=== PATIENT | female | born 1945 | race Caucasian/White ===

== ENCOUNTER 2022-04-27 21:39 | Emergency (ER) | payer OTHER, MEDICARE ==
[2022-04-27] MEDS ORDERED: Boostrix 0.5 ML (Tdap) VIAL ONE (22:11)
[2022-04-27] MEDS ORDERED: traMADol HCl 50 MG TAB ONE (22:11)
[2022-04-27] MEDS ORDERED: Ondansetron PF 4 MG/2 ML Vial ONE (22:11)
[2022-04-27] MEDS ORDERED: Ondansetron ODT 4 MG TAB ONE (22:20)
== END 2022-04-27 23:10 | disposition home or self-care (01) ==
LOC: BURERS 21:39
DX: S01.01XA Laceration without foreign body of scalp, initial encounter (principal); S70.10XA Contusion of unspecified thigh, initial encounter; S50.312A Abrasion of left elbow, initial encounter; I25.10 Atherosclerotic heart disease of native coronary artery without angina pectoris; E03.9 Hypothyroidism, unspecified; E78.5 Hyperlipidemia, unspecified; E78.00 Pure hypercholesterolemia, unspecified; I10 Essential (primary) hypertension; Z23 Encounter for immunization; W18.30XA Fall on same level, unspecified, initial encounter
CPT/HCPCS: 12002; 70450; 90471; 90715; J2405; Q0162

== ENCOUNTER 2022-06-08 19:29 | Emergency (ER) | payer OTHER, MEDICARE ==
[2022-06-08] MEDS ORDERED: Lidocaine 1% w/Epinephrine 1:100K 20 ML VIAL ONE (19:39)
[2022-06-08] MEDS ORDERED: Bacitracin 1 PK ONE ×2 (19:39→20:16)
[2022-06-08] MEDS ORDERED: Acetaminophen 500 MG TAB ONE (20:53)
== END 2022-06-08 20:57 | disposition home or self-care (01) ==
LOC: BURERS 19:29
DX: S01.01XA Laceration without foreign body of scalp, initial encounter (principal); S50.02XA Contusion of left elbow, initial encounter; E03.9 Hypothyroidism, unspecified; E78.00 Pure hypercholesterolemia, unspecified; I10 Essential (primary) hypertension; I25.10 Atherosclerotic heart disease of native coronary artery without angina pectoris; W01.198A Fall on same level from slipping, tripping and stumbling with subsequent striking against other object, initial encounter
CPT/HCPCS: 12002; 70450

== ENCOUNTER 2022-08-28 14:13 | Outpatient (CLI) | payer MEDICARE | END 2022-08-28 14:14 | disposition home or self-care (01) | LOC: BUREKG 14:13 | PROVIDERS: ATTEND Family Medicine | DX: Z01.818 Encounter for other preprocedural examination (principal) | CPT/HCPCS: 71046; 93005; 93010 ==

== ENCOUNTER 2022-12-18 14:42 | Outpatient (CLI) | payer MEDICARE ==
[2022-12-18 15:12] LABS: #Basophils 0.2 thou/uL (0.0-0.2); #Eosinphils 0.6 thou/uL (0.0-0.7); #Lymphocytes 2.9 thou/uL (1.20-3.40); #Monocytes 0.7 thou/uL (0.11-0.59); #Neutrophils 7.8 thou/uL (1.40-6.50); %Basophils 1.4 % (0.0-1.0); %Eosinophils 5.3 % (0.0-10.0); %Lymphocytes 23.6 % (21.0-51.0); %Monocytes 5.5 % (0.0-10.0); %Neutrophils 64.3 % (42.0-75.0); Hemoglobin 13.1 g/dL (12.0-16.0); Mean Corpuscular HGB CONC 33.4 g/dL (32.0-36.0); Mean Corpuscular Hemoglobin 31.7 pg (27.0-31.0); Mean Platelet Volume 6.4 fL (7.4-10.4); Platelet Count 317 10x3/uL (130-400); RBC Distribution Width 13.2 % (11.5-14.5); Red Blood Cell (RBC) Count 4.14 mill/uL (4.20-5.40); White Blood Cell (WBC) Count 12.1 10x3/uL (4.8-10.8)
[2022-12-18 15:20] LABS: INR-International Normal Ratio 0.9; Prothrombin Time 12.9 sec (12.0-14.7)
[2022-12-18 15:21] LABS: PTT 29.2 sec (22.9-36.1)
[2022-12-18 15:25] LABS: ALT (SGPT) 19 U/L (8-55); AST (SGOT) 17 U/L (5-34); Albumin 3.8 g/dL (3.4-4.8); Alkaline Phosphatase 101 U/L (40-110); Anion Gap 13 mmol/L (10-20); BUN (Urea Nitrogen) 27 mg/dL (9.8-20.1); Bilirubin, Total 0.3 mg/dL (0.2-1.2); Calc. Creatinine Clearance 0 mL/min (70-130); Calcium 9.6 mg/dL (7.8-10.44); Carbon Dioxide 26 mmol/L (23-31); Chloride 105 mmol/L (98-107); Estimated GFR 67; Globulin 3.1 g/dL (2.4-3.5); Glucose 105 mg/dL (83-110); Potassium 3.9 mmol/L (3.5-5.1); Protein, Total 6.9 g/dL (5.8-8.1); Sodium 140 mmol/L (136-145)
== END 2022-12-18 14:43 | disposition home or self-care (01) ==
LOC: BUREKG 14:42
PROVIDERS: ATTEND Family Medicine
DX: Z01.818 Encounter for other preprocedural examination (principal); J98.4 Other disorders of lung
CPT/HCPCS: 36415; 71046; 80053; 85025; 85610; 85730; 93005; 93010

== ENCOUNTER 2022-12-19 16:16 | Outpatient (CLI) | payer MEDICARE ==
[~2022-12-19 16:16] MED LIST: Iopamidol 370 76% 100 ML VIAL ONE
== END 2022-12-19 16:17 | disposition home or self-care (01) ==
LOC: BURCT 16:16
PROVIDERS: ATTEND Family Medicine
DX: R91.8 Other nonspecific abnormal finding of lung field (principal); K46.9 Unspecified abdominal hernia without obstruction or gangrene; K22.89 Other specified disease of esophagus; B43.2 Subcutaneous pheomycotic abscess and cyst; Z91.89 Other specified personal risk factors, not elsewhere classified
CPT/HCPCS: 71260; Q9967

== ENCOUNTER 2023-02-07 11:46 | Inpatient (IN) | payer MEDICARE ==
[2023-02-07] MEDS ORDERED: GUAIFENESIN SF SOLN 200 MG/10 ML UDCUP PO PRN (16:16)
[2023-02-07] MEDS: traZODone HCl 50 MG TAB PO SCH (20:12)
[2023-02-07] MEDS: Apixaban 5 MG TAB PO SCH (20:12)
[2023-02-07] MEDS: Famotidine 20 MG TAB PO SCH (20:12)
[2023-02-07] MEDS: Latanoprost 0.005% Ophth Soln 2.5 ml Bottle EA EYE SCH (20:13)
[2023-02-07] MEDS: Acetaminophen 325 MG TAB PO PRN (22:54)
[2023-02-08] MEDS: Levothyroxine Sodium 50 MCG TAB PO SCH (05:18)
[2023-02-08 05:52] LABS: #Basophils 0.1 thou/uL (0.0-0.2); #Eosinphils 0.4 thou/uL (0.0-0.7); #Lymphocytes 1.8 thou/uL (1.20-3.40); #Monocytes 0.6 thou/uL (0.11-0.59); #Neutrophils 5.8 thou/uL (1.40-6.50); %Basophils 1.3 % (0.0-1.0); %Eosinophils 4.3 % (0.0-10.0); %Lymphocytes 20.7 % (21.0-51.0); %Monocytes 6.5 % (0.0-10.0); %Neutrophils 67.3 % (42.0-75.0); Hemoglobin 11.3 g/dL (12.0-16.0); Mean Corpuscular HGB CONC 32.4 g/dL (32.0-36.0); Mean Corpuscular Hemoglobin 30.3 pg (27.0-31.0); Mean Corpuscular Volume 93.7 fl (78.0-98.0); Mean Platelet Volume 5.8 fL (7.4-10.4); Platelet Count 307 10x3/uL (130-400); RBC Distribution Width 12.3 % (11.5-14.5); Red Blood Cell (RBC) Count 3.74 mill/uL (4.20-5.40); White Blood Cell (WBC) Count 8.6 10x3/uL (4.8-10.8)
[2023-02-08 06:02] LABS: ALT (SGPT) 33 U/L (8-55); AST (SGOT) 36 U/L (5-34); Albumin 3.2 g/dL (3.4-4.8); Alkaline Phosphatase 81 U/L (40-110); Anion Gap 11 mmol/L (10-20); BUN (Urea Nitrogen) 14 mg/dL (9.8-20.1); Bilirubin, Total 0.2 mg/dL (0.2-1.2); Calc. Creatinine Clearance 74 mL/min (70-130); Calcium 9.6 mg/dL (7.8-10.44); Carbon Dioxide 26 mmol/L (23-31); Chloride 109 mmol/L (98-107); Estimated GFR 77; Globulin 3.5 g/dL (2.4-3.5); Glucose 97 mg/dL (83-110); Protein, Total 6.7 g/dL (5.8-8.1); Sodium 142 mmol/L (136-145)
[2023-02-08] MEDS ORDERED: Calcium Carbonate 600 MG + Vit D TAB ONE (08:03)
[2023-02-08] MEDS: Fluticasone Propionate Nasal Spray 16 gm Bottle NASAL SCH (08:57)
[2023-02-08] MEDS: DULoxetine 30 MG CAP PO SCH (08:59)
[2023-02-08] MEDS: Multivit, Therapeutic 1 TAB PO SCH (08:59)
[2023-02-08] MEDS: Fish Oil 1,000 MG CAP PO SCH (09:00)
[2023-02-08] MEDS: Apixaban 5 MG TAB PO SCH ×2 (09:01→20:40)
[2023-02-08] MEDS: Folic Acid 1 MG TAB PO SCH (09:01)
[2023-02-08] MEDS: Lisinopril 5 MG TAB PO SCH (09:02)
[2023-02-08] MEDS: Famotidine 20 MG TAB PO SCH ×2 (09:02→20:40)
[2023-02-08] MEDS: Ascorbic Acid 500 mg Chewable Tablet PO SCH (09:03)
[2023-02-08] MEDS: Artificial Tear Sol 15 ML BOT EA EYE PRN (09:14)
[2023-02-08] MEDS: CALCIUM CARB PO SCH (09:15)
[2023-02-08] MEDS: ZINC SULF PO SCH (09:15)
[2023-02-08] MEDS: CRANBERRY FRUIT EXTRACT 500 MG PO SCH (09:15)
[2023-02-08] MEDS: MAG OX PO SCH (09:15)
[2023-02-08] MEDS: Acetaminophen 325 MG TAB PO PRN ×2 (16:52→21:08)
[2023-02-08] MEDS: Latanoprost 0.005% Ophth Soln 2.5 ml Bottle EA EYE SCH (20:40)
[2023-02-08] MEDS: traZODone HCl 50 MG TAB PO SCH (20:40)
[2023-02-08] MEDS: ALPRAZolam 0.5 MG TAB PO PRN (20:50)
[2023-02-09] MEDS: Levothyroxine Sodium 50 MCG TAB PO SCH (05:32)
[2023-02-09] MEDS ORDERED: Calcium Carbonate 600 MG + Vit D TAB ONE (08:10)
[2023-02-09] MEDS: Fluticasone Propionate Nasal Spray 16 gm Bottle NASAL SCH (08:41)
[2023-02-09] MEDS: Multivit, Therapeutic 1 TAB PO SCH (08:41)
[2023-02-09] MEDS: Famotidine 20 MG TAB PO SCH ×2 (08:42→20:16)
[2023-02-09] MEDS: Apixaban 5 MG TAB PO SCH ×2 (08:42→20:16)
[2023-02-09] MEDS: Fish Oil 1,000 MG CAP PO SCH (08:43)
[2023-02-09] MEDS: Ascorbic Acid 500 mg Chewable Tablet PO SCH (08:43)
[2023-02-09] MEDS: DULoxetine 30 MG CAP PO SCH (08:44)
[2023-02-09] MEDS: Folic Acid 1 MG TAB PO SCH (08:44)
[2023-02-09] MEDS: CRANBERRY FRUIT EXTRACT 500 MG PO SCH (08:46)
[2023-02-09] MEDS: MAG OX PO SCH (08:46)
[2023-02-09] MEDS: ZINC SULF PO SCH (08:46)
[2023-02-09] MEDS: CALCIUM CARB PO SCH (08:46)
[2023-02-09] MEDS: Artificial Tear Sol 15 ML BOT EA EYE PRN ×2 (08:47→20:21)
[2023-02-09] MEDS: Lisinopril 5 MG TAB PO SCH (08:53)
[2023-02-09] MEDS ORDERED: Nystatin Powder 15 GM BOT TOP PRN (13:56)
[2023-02-09] MEDS: Acetaminophen 325 MG TAB PO PRN (15:13)
[2023-02-09] MEDS: traZODone HCl 50 MG TAB PO SCH (20:16)
[2023-02-09] MEDS: rOPINIRole HCl 0.25 MG TAB PO SCH (20:17)
[2023-02-09] MEDS: Latanoprost 0.005% Ophth Soln 2.5 ml Bottle EA EYE SCH (20:18)
[2023-02-10] MEDS: Levothyroxine Sodium 50 MCG TAB PO SCH (05:33)
[2023-02-10] MEDS ORDERED: Calcium Carbonate 600 MG + Vit D TAB ONE (09:13)
[2023-02-10] MEDS: DULoxetine 30 MG CAP PO SCH (09:19)
[2023-02-10] MEDS: Apixaban 5 MG TAB PO SCH ×2 (09:19→21:01)
[2023-02-10] MEDS: Fish Oil 1,000 MG CAP PO SCH (09:19)
[2023-02-10] MEDS: Multivit, Therapeutic 1 TAB PO SCH (09:20)
[2023-02-10] MEDS: Ascorbic Acid 500 mg Chewable Tablet PO SCH (09:20)
[2023-02-10] MEDS: Folic Acid 1 MG TAB PO SCH (09:20)
[2023-02-10] MEDS: Lisinopril 5 MG TAB PO SCH (09:20)
[2023-02-10] MEDS: Famotidine 20 MG TAB PO SCH ×2 (09:20→21:01)
[2023-02-10] MEDS: Fluticasone Propionate Nasal Spray 16 gm Bottle NASAL SCH (09:21)
[2023-02-10] MEDS: CALCIUM CARB PO SCH (09:22)
[2023-02-10] MEDS: MAG OX PO SCH (09:22)
[2023-02-10] MEDS: ZINC SULF PO SCH (09:22)
[2023-02-10] MEDS: CRANBERRY FRUIT EXTRACT 500 MG PO SCH (09:22)
[2023-02-10] MEDS: Artificial Tear Sol 15 ML BOT EA EYE PRN ×2 (09:25→21:02)
[2023-02-10] MEDS: traZODone HCl 50 MG TAB PO SCH (21:00)
[2023-02-10] MEDS: Acetaminophen 325 MG TAB PO PRN (21:00)
[2023-02-10] MEDS: Latanoprost 0.005% Ophth Soln 2.5 ml Bottle EA EYE SCH (21:01)
[2023-02-10] MEDS: rOPINIRole HCl 0.25 MG TAB PO SCH (21:01)
[2023-02-11] MEDS: Levothyroxine Sodium 50 MCG TAB PO SCH (05:40)
[2023-02-11] MEDS ORDERED: Calcium Carbonate 600 MG + Vit D TAB ONE (09:00)
[2023-02-11] MEDS: Fluticasone Propionate Nasal Spray 16 gm Bottle NASAL SCH (09:04)
[2023-02-11] MEDS: Artificial Tear Sol 15 ML BOT EA EYE PRN ×2 (09:05→20:24)
[2023-02-11] MEDS: DULoxetine 30 MG CAP PO SCH (09:06)
[2023-02-11] MEDS: Famotidine 20 MG TAB PO SCH ×2 (09:06→20:18)
[2023-02-11] MEDS: Fish Oil 1,000 MG CAP PO SCH (09:06)
[2023-02-11] MEDS: Apixaban 5 MG TAB PO SCH ×2 (09:07→20:19)
[2023-02-11] MEDS: Ascorbic Acid 500 mg Chewable Tablet PO SCH (09:07)
[2023-02-11] MEDS: Folic Acid 1 MG TAB PO SCH (09:07)
[2023-02-11] MEDS: Lisinopril 5 MG TAB PO SCH (09:08)
[2023-02-11] MEDS: Multivit, Therapeutic 1 TAB PO SCH (09:08)
[2023-02-11] MEDS: ZINC SULF PO SCH (09:43)
[2023-02-11] MEDS: CALCIUM CARB PO SCH (09:43)
[2023-02-11] MEDS: MAG OX PO SCH (09:43)
[2023-02-11] MEDS: CRANBERRY FRUIT EXTRACT 500 MG PO SCH (09:44)
[2023-02-11] MEDS: Acetaminophen 325 MG TAB PO PRN ×2 (11:37→20:19)
[2023-02-11] MEDS: traZODone HCl 50 MG TAB PO SCH (20:18)
[2023-02-11] MEDS: rOPINIRole HCl 0.25 MG TAB PO SCH (20:19)
[2023-02-11] MEDS: Senokot S 8.6-50 MG TAB PO SCH (20:19)
[2023-02-11] MEDS: Latanoprost 0.005% Ophth Soln 2.5 ml Bottle EA EYE SCH (20:23)
[2023-02-12] MEDS: Levothyroxine Sodium 50 MCG TAB PO SCH (04:28)
[2023-02-12] MEDS ORDERED: Calcium Carbonate 600 MG + Vit D TAB ONE (08:19)
[2023-02-12] MEDS: Senokot S 8.6-50 MG TAB PO SCH ×2 (09:14→20:28)
[2023-02-12] MEDS: Acetaminophen 325 MG TAB PO PRN ×2 (09:14→20:27)
[2023-02-12] MEDS: Folic Acid 1 MG TAB PO SCH (09:15)
[2023-02-12] MEDS: Cyanocobalamin (Vitamin B-12) 1,000 MCG TAB PO SCH (09:16)
[2023-02-12] MEDS: Ascorbic Acid 500 mg Chewable Tablet PO SCH (09:16)
[2023-02-12] MEDS: Famotidine 20 MG TAB PO SCH ×2 (09:16→20:28)
[2023-02-12] MEDS: DULoxetine 30 MG CAP PO SCH (09:16)
[2023-02-12] MEDS: Lisinopril 5 MG TAB PO SCH (09:17)
[2023-02-12] MEDS: Apixaban 5 MG TAB PO SCH ×2 (09:17→20:28)
[2023-02-12] MEDS: Fish Oil 1,000 MG CAP PO SCH (09:18)
[2023-02-12] MEDS: Multivit, Therapeutic 1 TAB PO SCH (09:18)
[2023-02-12] MEDS: Fluticasone Propionate Nasal Spray 16 gm Bottle NASAL SCH (09:19)
[2023-02-12] MEDS: CALCIUM CARB PO SCH (09:21)
[2023-02-12] MEDS: MAG OX PO SCH (09:21)
[2023-02-12] MEDS: CRANBERRY FRUIT EXTRACT 500 MG PO SCH (09:21)
[2023-02-12] MEDS: ZINC SULF PO SCH (09:21)
[2023-02-12] MEDS: ALPRAZolam 0.5 MG TAB PO PRN (20:28)
[2023-02-12] MEDS: Latanoprost 0.005% Ophth Soln 2.5 ml Bottle EA EYE SCH (20:28)
[2023-02-12] MEDS: rOPINIRole HCl 0.25 MG TAB PO SCH (20:28)
[2023-02-12] MEDS: traZODone HCl 50 MG TAB PO SCH (20:28)
[2023-02-13] MEDS: Levothyroxine Sodium 50 MCG TAB PO SCH (05:13)
[2023-02-13] MEDS ORDERED: Calcium Carbonate 600 MG + Vit D TAB ONE (09:29)
[2023-02-13] MEDS: Fish Oil 1,000 MG CAP PO SCH (09:36)
[2023-02-13] MEDS: Famotidine 20 MG TAB PO SCH ×2 (09:36→21:29)
[2023-02-13] MEDS: DULoxetine 30 MG CAP PO SCH (09:36)
[2023-02-13] MEDS: Senokot S 8.6-50 MG TAB PO SCH ×2 (09:36→21:29)
[2023-02-13] MEDS: Multivit, Therapeutic 1 TAB PO SCH (09:39)
[2023-02-13] MEDS: Lisinopril 5 MG TAB PO SCH (09:40)
[2023-02-13] MEDS: Cyanocobalamin (Vitamin B-12) 1,000 MCG TAB PO SCH (09:41)
[2023-02-13] MEDS: Folic Acid 1 MG TAB PO SCH (09:41)
[2023-02-13] MEDS: Ascorbic Acid 500 mg Chewable Tablet PO SCH (09:41)
[2023-02-13] MEDS: CALCIUM CARB PO SCH (09:42)
[2023-02-13] MEDS: ZINC SULF PO SCH (09:42)
[2023-02-13] MEDS: MAG OX PO SCH (09:42)
[2023-02-13] MEDS: Apixaban 5 MG TAB PO SCH ×2 (09:42→21:30)
[2023-02-13] MEDS: CRANBERRY FRUIT EXTRACT 500 MG PO SCH (09:42)
[2023-02-13] MEDS: Fluticasone Propionate Nasal Spray 16 gm Bottle NASAL SCH (12:50)
[2023-02-13] MEDS: rOPINIRole HCl 0.25 MG TAB PO SCH (21:30)
[2023-02-13] MEDS: traZODone HCl 50 MG TAB PO SCH (21:30)
[2023-02-13] MEDS: Latanoprost 0.005% Ophth Soln 2.5 ml Bottle EA EYE SCH (21:30)
[2023-02-13] MEDS: Acetaminophen 325 MG TAB PO PRN (21:51)
[2023-02-14] MEDS: Levothyroxine Sodium 50 MCG TAB PO SCH (05:08)
[2023-02-14] MEDS ORDERED: Calcium Carbonate 600 MG + Vit D TAB ONE (08:13)
[2023-02-14] MEDS: Fish Oil 1,000 MG CAP PO SCH (08:27)
[2023-02-14] MEDS: DULoxetine 30 MG CAP PO SCH (08:27)
[2023-02-14] MEDS: Ascorbic Acid 500 mg Chewable Tablet PO SCH (08:28)
[2023-02-14] MEDS: Cyanocobalamin (Vitamin B-12) 1,000 MCG TAB PO SCH (08:29)
[2023-02-14] MEDS: Apixaban 5 MG TAB PO SCH ×2 (08:29→21:03)
[2023-02-14] MEDS: Multivit, Therapeutic 1 TAB PO SCH (08:29)
[2023-02-14] MEDS: Folic Acid 1 MG TAB PO SCH (08:30)
[2023-02-14] MEDS: Lisinopril 5 MG TAB PO SCH (08:30)
[2023-02-14] MEDS: Famotidine 20 MG TAB PO SCH ×2 (08:30→21:03)
[2023-02-14] MEDS: Senokot S 8.6-50 MG TAB PO SCH ×2 (08:31→21:04)
[2023-02-14] MEDS: CALCIUM CARB PO SCH (08:32)
[2023-02-14] MEDS: CRANBERRY FRUIT EXTRACT 500 MG PO SCH (08:32)
[2023-02-14] MEDS: MAG OX PO SCH (08:32)
[2023-02-14] MEDS: ZINC SULF PO SCH (08:32)
[2023-02-14] MEDS: Fluticasone Propionate Nasal Spray 16 gm Bottle NASAL SCH (08:37)
[2023-02-14 10:57] VITALS: BMI 29.7
[2023-02-14] MEDS: Acetaminophen 325 MG TAB PO PRN ×3 (11:15→21:11)
[2023-02-14] MEDS: ALPRAZolam 0.5 MG TAB PO PRN (15:26)
[2023-02-14] MEDS: Latanoprost 0.005% Ophth Soln 2.5 ml Bottle EA EYE SCH (21:02)
[2023-02-14] MEDS: rOPINIRole HCl 0.25 MG TAB PO SCH (21:03)
[2023-02-14] MEDS: traZODone HCl 50 MG TAB PO SCH (21:03)
[2023-02-15] MEDS: Acetaminophen 325 MG TAB PO PRN ×3 (04:49→20:11)
[2023-02-15] MEDS: Levothyroxine Sodium 50 MCG TAB PO SCH (05:34)
[2023-02-15] MEDS ORDERED: Calcium Carbonate 600 MG + Vit D TAB ONE (09:14)
[2023-02-15] MEDS: Cyanocobalamin (Vitamin B-12) 1,000 MCG TAB PO SCH (09:33)
[2023-02-15] MEDS: Folic Acid 1 MG TAB PO SCH (09:33)
[2023-02-15] MEDS: Fish Oil 1,000 MG CAP PO SCH (09:33)
[2023-02-15] MEDS: Apixaban 5 MG TAB PO SCH ×2 (09:33→20:10)
[2023-02-15] MEDS: Ascorbic Acid 500 mg Chewable Tablet PO SCH (09:33)
[2023-02-15] MEDS: Multivit, Therapeutic 1 TAB PO SCH (09:34)
[2023-02-15] MEDS: Senokot S 8.6-50 MG TAB PO SCH ×2 (09:35→20:15)
[2023-02-15] MEDS: Famotidine 20 MG TAB PO SCH ×2 (09:35→20:10)
[2023-02-15] MEDS: Lisinopril 5 MG TAB PO SCH (09:35)
[2023-02-15] MEDS: DULoxetine 30 MG CAP PO SCH (09:38)
[2023-02-15] MEDS: Fluticasone Propionate Nasal Spray 16 gm Bottle NASAL SCH (09:41)
[2023-02-15] MEDS: Artificial Tear Sol 15 ML BOT EA EYE PRN ×2 (09:42→20:18)
[2023-02-15] MEDS: CRANBERRY FRUIT EXTRACT 500 MG PO SCH (09:43)
[2023-02-15] MEDS: ZINC SULF PO SCH (09:43)
[2023-02-15] MEDS: MAG OX PO SCH (09:43)
[2023-02-15] MEDS: CALCIUM CARB PO SCH (09:43)
[2023-02-15] MEDS: rOPINIRole HCl 0.25 MG TAB PO SCH (20:10)
[2023-02-15] MEDS: traZODone HCl 50 MG TAB PO SCH (20:10)
[2023-02-15] MEDS: Latanoprost 0.005% Ophth Soln 2.5 ml Bottle EA EYE SCH (20:15)
[2023-02-16] MEDS: Levothyroxine Sodium 50 MCG TAB PO SCH (05:28)
[2023-02-16] MEDS ORDERED: Calcium Carbonate 600 MG + Vit D TAB ONE (08:54)
[2023-02-16] MEDS: Artificial Tear Sol 15 ML BOT EA EYE PRN (08:59)
[2023-02-16] MEDS: Fluticasone Propionate Nasal Spray 16 gm Bottle NASAL SCH (09:02)
[2023-02-16] MEDS: Apixaban 5 MG TAB PO SCH ×2 (09:03→20:57)
[2023-02-16] MEDS: Fish Oil 1,000 MG CAP PO SCH (09:03)
[2023-02-16] MEDS: DULoxetine 30 MG CAP PO SCH (09:03)
[2023-02-16] MEDS: Folic Acid 1 MG TAB PO SCH (09:03)
[2023-02-16] MEDS: Cyanocobalamin (Vitamin B-12) 1,000 MCG TAB PO SCH (09:04)
[2023-02-16] MEDS: Lisinopril 5 MG TAB PO SCH (09:04)
[2023-02-16] MEDS: Famotidine 20 MG TAB PO SCH ×2 (09:05→20:57)
[2023-02-16] MEDS: Ascorbic Acid 500 mg Chewable Tablet PO SCH (09:05)
[2023-02-16] MEDS: Multivit, Therapeutic 1 TAB PO SCH (09:06)
[2023-02-16] MEDS: MAG OX PO SCH (09:07)
[2023-02-16] MEDS: CALCIUM CARB PO SCH (09:07)
[2023-02-16] MEDS: CRANBERRY FRUIT EXTRACT 500 MG PO SCH (09:07)
[2023-02-16] MEDS: ZINC SULF PO SCH (09:07)
[2023-02-16] MEDS: Senokot S 8.6-50 MG TAB PO SCH ×2 (09:09→20:59)
[2023-02-16] MEDS: ALPRAZolam 0.5 MG TAB PO PRN (15:50)
[2023-02-16] MEDS: Acetaminophen 325 MG TAB PO PRN (20:57)
[2023-02-16] MEDS: traZODone HCl 50 MG TAB PO SCH (20:59)
[2023-02-16] MEDS: rOPINIRole HCl 0.25 MG TAB PO SCH (20:59)
[2023-02-16] MEDS: Latanoprost 0.005% Ophth Soln 2.5 ml Bottle EA EYE SCH (21:00)
[2023-02-17] MEDS: Levothyroxine Sodium 50 MCG TAB PO SCH (05:37)
[2023-02-17] MEDS: Acetaminophen 325 MG TAB PO PRN ×2 (06:13→12:34)
[2023-02-17] MEDS ORDERED: Calcium Carbonate 600 MG + Vit D TAB ONE (09:09)
[2023-02-17] MEDS: Artificial Tear Sol 15 ML BOT EA EYE PRN (09:23)
[2023-02-17] MEDS: Fluticasone Propionate Nasal Spray 16 gm Bottle NASAL SCH (09:24)
[2023-02-17] MEDS: Multivit, Therapeutic 1 TAB PO SCH (09:24)
[2023-02-17] MEDS: Fish Oil 1,000 MG CAP PO SCH (09:24)
[2023-02-17] MEDS: Famotidine 20 MG TAB PO SCH ×2 (09:25→20:38)
[2023-02-17] MEDS: Apixaban 5 MG TAB PO SCH ×2 (09:25→20:38)
[2023-02-17] MEDS: Cyanocobalamin (Vitamin B-12) 1,000 MCG TAB PO SCH (09:25)
[2023-02-17] MEDS: Lisinopril 5 MG TAB PO SCH (09:25)
[2023-02-17] MEDS: Ascorbic Acid 500 mg Chewable Tablet PO SCH (09:25)
[2023-02-17] MEDS: DULoxetine 30 MG CAP PO SCH (09:25)
[2023-02-17] MEDS: Senokot S 8.6-50 MG TAB PO SCH ×2 (09:25→20:38)
[2023-02-17] MEDS: Folic Acid 1 MG TAB PO SCH (09:25)
[2023-02-17] MEDS: CALCIUM CARB PO SCH (09:26)
[2023-02-17] MEDS: MAG OX PO SCH (09:26)
[2023-02-17] MEDS: ZINC SULF PO SCH (09:26)
[2023-02-17] MEDS: CRANBERRY FRUIT EXTRACT 500 MG PO SCH (09:26)
[2023-02-17] MEDS: hydrOXYzine 25 MG TAB PO SCH (20:38)
[2023-02-17] MEDS: traZODone HCl 50 MG TAB PO SCH (20:38)
[2023-02-17] MEDS: rOPINIRole HCl 0.25 MG TAB PO SCH (20:38)
[2023-02-17] MEDS: Latanoprost 0.005% Ophth Soln 2.5 ml Bottle EA EYE SCH (20:41)
[2023-02-18] MEDS: Levothyroxine Sodium 50 MCG TAB PO SCH (05:18)
[2023-02-18 05:34] LABS: Hemoglobin 11.6 g/dL (12.0-16.0); Platelet Count 268 10x3/uL (130-400)
[2023-02-18] MEDS ORDERED: Calcium Carbonate 600 MG + Vit D TAB ONE (09:27)
[2023-02-18] MEDS: Fluticasone Propionate Nasal Spray 16 gm Bottle NASAL SCH (09:36)
[2023-02-18] MEDS: Famotidine 20 MG TAB PO SCH ×2 (09:37→20:47)
[2023-02-18] MEDS: Senokot S 8.6-50 MG TAB PO SCH ×2 (09:37→20:47)
[2023-02-18] MEDS: Fish Oil 1,000 MG CAP PO SCH (09:37)
[2023-02-18] MEDS: Apixaban 5 MG TAB PO SCH ×2 (09:37→20:47)
[2023-02-18] MEDS: DULoxetine 30 MG CAP PO SCH (09:38)
[2023-02-18] MEDS: Folic Acid 1 MG TAB PO SCH (09:38)
[2023-02-18] MEDS: Multivit, Therapeutic 1 TAB PO SCH (09:40)
[2023-02-18] MEDS: Cyanocobalamin (Vitamin B-12) 1,000 MCG TAB PO SCH (09:40)
[2023-02-18] MEDS: Ascorbic Acid 500 mg Chewable Tablet PO SCH (09:40)
[2023-02-18] MEDS: Artificial Tear Sol 15 ML BOT EA EYE PRN (09:40)
[2023-02-18] MEDS: Lisinopril 5 MG TAB PO SCH (09:44)
[2023-02-18] MEDS: CALCIUM CARB PO SCH (09:50)
[2023-02-18] MEDS: ZINC SULF PO SCH (09:50)
[2023-02-18] MEDS: MAG OX PO SCH (09:50)
[2023-02-18] MEDS: CRANBERRY FRUIT EXTRACT 500 MG PO SCH (09:50)
[2023-02-18] MEDS ORDERED: ALPRAZolam 0.5 MG TAB PO PRN (10:05)
[2023-02-18] MEDS: traZODone HCl 50 MG TAB PO SCH (20:47)
[2023-02-18] MEDS: hydrOXYzine 25 MG TAB PO SCH (20:47)
[2023-02-18] MEDS: Acetaminophen 325 MG TAB PO PRN (20:47)
[2023-02-18] MEDS: rOPINIRole HCl 0.25 MG TAB PO SCH (20:48)
[2023-02-18] MEDS: Latanoprost 0.005% Ophth Soln 2.5 ml Bottle EA EYE SCH (20:50)
[2023-02-19] MEDS: Levothyroxine Sodium 50 MCG TAB PO SCH (05:16)
[2023-02-19] MEDS ORDERED: Calcium Carbonate 600 MG + Vit D TAB ONE (08:04)
[2023-02-19] MEDS: DULoxetine 30 MG CAP PO SCH (08:34)
[2023-02-19] MEDS: Senokot S 8.6-50 MG TAB PO SCH ×2 (08:35→21:04)
[2023-02-19] MEDS: Lisinopril 5 MG TAB PO SCH (08:35)
[2023-02-19] MEDS: Famotidine 20 MG TAB PO SCH ×2 (08:36→21:04)
[2023-02-19] MEDS: Ascorbic Acid 500 mg Chewable Tablet PO SCH (08:36)
[2023-02-19] MEDS: Fish Oil 1,000 MG CAP PO SCH (08:36)
[2023-02-19] MEDS: Folic Acid 1 MG TAB PO SCH (08:37)
[2023-02-19] MEDS: Multivit, Therapeutic 1 TAB PO SCH (08:38)
[2023-02-19] MEDS: Apixaban 5 MG TAB PO SCH ×2 (08:39→21:04)
[2023-02-19] MEDS: Cyanocobalamin (Vitamin B-12) 1,000 MCG TAB PO SCH (08:40)
[2023-02-19] MEDS: Artificial Tear Sol 15 ML BOT EA EYE PRN (08:41)
[2023-02-19] MEDS: Fluticasone Propionate Nasal Spray 16 gm Bottle NASAL SCH (08:42)
[2023-02-19] MEDS: Acetaminophen 325 MG TAB PO PRN ×2 (08:47→21:10)
[2023-02-19] MEDS: MAG OX PO SCH (09:04)
[2023-02-19] MEDS: ZINC SULF PO SCH (09:04)
[2023-02-19] MEDS: CRANBERRY FRUIT EXTRACT 500 MG PO SCH (09:04)
[2023-02-19] MEDS: CALCIUM CARB PO SCH (09:04)
[2023-02-19] MEDS: hydrOXYzine 25 MG TAB PO SCH (21:04)
[2023-02-19] MEDS: traZODone HCl 50 MG TAB PO SCH (21:04)
[2023-02-19] MEDS: Latanoprost 0.005% Ophth Soln 2.5 ml Bottle EA EYE SCH (21:04)
[2023-02-19] MEDS: rOPINIRole HCl 0.25 MG TAB PO SCH (21:04)
[2023-02-20] MEDS: Levothyroxine Sodium 50 MCG TAB PO SCH (05:18)
[2023-02-20] MEDS ORDERED: Calcium Carbonate 600 MG + Vit D TAB ONE (08:15)
[2023-02-20] MEDS: Multivit, Therapeutic 1 TAB PO SCH (08:36)
[2023-02-20] MEDS: Fluticasone Propionate Nasal Spray 16 gm Bottle NASAL SCH (08:36)
[2023-02-20] MEDS: Artificial Tear Sol 15 ML BOT EA EYE PRN ×2 (08:37→20:18)
[2023-02-20] MEDS: DULoxetine 30 MG CAP PO SCH (08:38)
[2023-02-20] MEDS: Lisinopril 5 MG TAB PO SCH (08:38)
[2023-02-20] MEDS: Folic Acid 1 MG TAB PO SCH (08:39)
[2023-02-20] MEDS: Senokot S 8.6-50 MG TAB PO SCH ×2 (08:39→20:19)
[2023-02-20] MEDS: Famotidine 20 MG TAB PO SCH ×2 (08:39→20:19)
[2023-02-20] MEDS: Ascorbic Acid 500 mg Chewable Tablet PO SCH (08:39)
[2023-02-20] MEDS: Apixaban 5 MG TAB PO SCH ×2 (08:40→20:19)
[2023-02-20] MEDS: Cyanocobalamin (Vitamin B-12) 1,000 MCG TAB PO SCH (08:40)
[2023-02-20] MEDS: MAG OX PO SCH (08:41)
[2023-02-20] MEDS: CRANBERRY FRUIT EXTRACT 500 MG PO SCH (08:41)
[2023-02-20] MEDS: ZINC SULF PO SCH (08:41)
[2023-02-20] MEDS: CALCIUM CARB PO SCH (08:41)
[2023-02-20] MEDS: Fish Oil 1,000 MG CAP PO SCH (08:41)
[2023-02-20] MEDS: hydrOXYzine 25 MG TAB PO SCH (20:18)
[2023-02-20] MEDS: Latanoprost 0.005% Ophth Soln 2.5 ml Bottle EA EYE SCH (20:18)
[2023-02-20] MEDS: traZODone HCl 50 MG TAB PO SCH (20:18)
[2023-02-20] MEDS: rOPINIRole HCl 0.25 MG TAB PO SCH (20:18)
[2023-02-20] MEDS: Acetaminophen 325 MG TAB PO PRN (20:19)
[2023-02-21] MEDS: Acetaminophen 325 MG TAB PO PRN ×2 (05:46→13:29)
[2023-02-21] MEDS: Levothyroxine Sodium 50 MCG TAB PO SCH (05:47)
[2023-02-21] MEDS ORDERED: Calcium Carbonate 600 MG + Vit D TAB ONE (09:04)
[2023-02-21] MEDS: Lisinopril 5 MG TAB PO SCH (10:07)
[2023-02-21] MEDS: DULoxetine 30 MG CAP PO SCH (10:07)
[2023-02-21] MEDS: Folic Acid 1 MG TAB PO SCH (10:07)
[2023-02-21] MEDS: Ascorbic Acid 500 mg Chewable Tablet PO SCH (10:08)
[2023-02-21] MEDS: Apixaban 5 MG TAB PO SCH ×2 (10:08→20:06)
[2023-02-21] MEDS: Cyanocobalamin (Vitamin B-12) 1,000 MCG TAB PO SCH (10:08)
[2023-02-21] MEDS: Fish Oil 1,000 MG CAP PO SCH (10:09)
[2023-02-21] MEDS: Famotidine 20 MG TAB PO SCH ×2 (10:09→20:06)
[2023-02-21] MEDS: ZINC SULF PO SCH (10:10)
[2023-02-21] MEDS: CRANBERRY FRUIT EXTRACT 500 MG PO SCH (10:10)
[2023-02-21] MEDS: Senokot S 8.6-50 MG TAB PO SCH ×2 (10:10→20:06)
[2023-02-21] MEDS: Multivit, Therapeutic 1 TAB PO SCH (10:10)
[2023-02-21] MEDS: CALCIUM CARB PO SCH (10:10)
[2023-02-21] MEDS: MAG OX PO SCH (10:10)
[2023-02-21] MEDS: Artificial Tear Sol 15 ML BOT EA EYE PRN ×2 (10:20→20:06)
[2023-02-21] MEDS: Fluticasone Propionate Nasal Spray 16 gm Bottle NASAL SCH (10:21)
[2023-02-21] MEDS: Latanoprost 0.005% Ophth Soln 2.5 ml Bottle EA EYE SCH (20:06)
[2023-02-21] MEDS: hydrOXYzine 25 MG TAB PO SCH (20:06)
[2023-02-21] MEDS: traZODone HCl 50 MG TAB PO SCH (20:06)
[2023-02-21] MEDS: rOPINIRole HCl 0.25 MG TAB PO SCH (20:06)
[2023-02-22] MEDS: Levothyroxine Sodium 50 MCG TAB PO SCH (05:30)
[2023-02-22] MEDS ORDERED: Calcium Carbonate 600 MG + Vit D TAB ONE (08:33)
[2023-02-22] MEDS: Artificial Tear Sol 15 ML BOT EA EYE PRN ×2 (09:18→21:35)
[2023-02-22] MEDS: Fluticasone Propionate Nasal Spray 16 gm Bottle NASAL SCH (09:18)
[2023-02-22] MEDS: DULoxetine 30 MG CAP PO SCH (09:19)
[2023-02-22] MEDS: Folic Acid 1 MG TAB PO SCH (09:20)
[2023-02-22] MEDS: Famotidine 20 MG TAB PO SCH ×2 (09:20→21:36)
[2023-02-22] MEDS: Cyanocobalamin (Vitamin B-12) 1,000 MCG TAB PO SCH (09:21)
[2023-02-22] MEDS: Ascorbic Acid 500 mg Chewable Tablet PO SCH (09:21)
[2023-02-22] MEDS: Multivit, Therapeutic 1 TAB PO SCH (09:21)
[2023-02-22] MEDS: Fish Oil 1,000 MG CAP PO SCH (09:21)
[2023-02-22] MEDS: Senokot S 8.6-50 MG TAB PO SCH ×2 (09:21→21:37)
[2023-02-22] MEDS: Lisinopril 5 MG TAB PO SCH (09:21)
[2023-02-22] MEDS: Apixaban 5 MG TAB PO SCH ×2 (09:21→21:36)
[2023-02-22] MEDS: CRANBERRY FRUIT EXTRACT 500 MG PO SCH (09:23)
[2023-02-22] MEDS: ZINC SULF PO SCH (09:23)
[2023-02-22] MEDS: MAG OX PO SCH (09:23)
[2023-02-22] MEDS: CALCIUM CARB PO SCH (09:23)
[2023-02-22] MEDS: Acetaminophen 325 MG TAB PO PRN (09:31)
[2023-02-22] MEDS: Latanoprost 0.005% Ophth Soln 2.5 ml Bottle EA EYE SCH (21:34)
[2023-02-22] MEDS: traZODone HCl 50 MG TAB PO SCH (21:36)
[2023-02-22] MEDS: hydrOXYzine 25 MG TAB PO SCH (21:36)
[2023-02-22] MEDS: rOPINIRole HCl 0.25 MG TAB PO SCH (21:36)
[2023-02-23] MEDS: Levothyroxine Sodium 50 MCG TAB PO SCH (06:00)
[2023-02-23 06:44] VITALS: TEMP 98.2
[2023-02-23] MEDS ORDERED: Calcium Carbonate 600 MG + Vit D TAB ONE (08:14)
[2023-02-23] MEDS: Fluticasone Propionate Nasal Spray 16 gm Bottle NASAL SCH (09:15)
[2023-02-23] MEDS: DULoxetine 30 MG CAP PO SCH (09:16)
[2023-02-23] MEDS: Artificial Tear Sol 15 ML BOT EA EYE PRN (09:16)
[2023-02-23] MEDS: Apixaban 5 MG TAB PO SCH (09:17)
[2023-02-23] MEDS: Famotidine 20 MG TAB PO SCH (09:17)
[2023-02-23] MEDS: Fish Oil 1,000 MG CAP PO SCH (09:17)
[2023-02-23] MEDS: Multivit, Therapeutic 1 TAB PO SCH (09:18)
[2023-02-23] MEDS: Lisinopril 5 MG TAB PO SCH (09:19)
[2023-02-23] MEDS: Senokot S 8.6-50 MG TAB PO SCH (09:19)
[2023-02-23] MEDS: Ascorbic Acid 500 mg Chewable Tablet PO SCH (09:19)
[2023-02-23] MEDS: Cyanocobalamin (Vitamin B-12) 1,000 MCG TAB PO SCH (09:19)
[2023-02-23] MEDS: Folic Acid 1 MG TAB PO SCH (09:19)
[2023-02-23] MEDS: ZINC SULF PO SCH (09:22)
[2023-02-23] MEDS: CALCIUM CARB PO SCH (09:22)
[2023-02-23] MEDS: MAG OX PO SCH (09:22)
[2023-02-23] MEDS: CRANBERRY FRUIT EXTRACT 500 MG PO SCH (09:22)
[2023-02-23 09:23] VITALS: BP 108/57
== END 2023-02-23 14:30 | disposition home health service (06) | DRG 948 ==
LOC: BURMED 12:00
PROVIDERS: ADMIT Family Medicine; ATTEND Family Medicine
DX: R53.1 Weakness (principal); Z66 Do not resuscitate; Z96.653 Presence of artificial knee joint, bilateral; I25.10 Atherosclerotic heart disease of native coronary artery without angina pectoris; I10 Essential (primary) hypertension; E78.5 Hyperlipidemia, unspecified; F41.9 Anxiety disorder, unspecified; F32.A Depression, unspecified; G47.00 Insomnia, unspecified; R91.1 Solitary pulmonary nodule; E03.9 Hypothyroidism, unspecified; G89.29 Other chronic pain; M54.50 Low back pain, unspecified; Z86.711 Personal history of pulmonary embolism; Z90.710 Acquired absence of both cervix and uterus; Z86.718 Personal history of other venous thrombosis and embolism; Z79.01 Long term (current) use of anticoagulants; Z79.899 Other long term (current) drug therapy; Z79.890 Hormone replacement therapy
CPT/HCPCS: 36415; 80053; 85014; 85018; 85025; 85049

== ENCOUNTER 2023-02-28 11:57 | Outpatient (CLI) | payer MEDICARE ==
[2023-02-28 12:14] LABS: #Basophils 0.1 thou/uL (0.0-0.2); #Eosinphils 0.3 thou/uL (0.0-0.7); #Lymphocytes 1.9 thou/uL (1.20-3.40); #Monocytes 0.5 thou/uL (0.11-0.59); #Neutrophils 3.6 thou/uL (1.40-6.50); %Basophils 1.4 % (0.0-1.0); %Eosinophils 4.5 % (0.0-10.0); %Lymphocytes 29.9 % (21.0-51.0); %Monocytes 7.3 % (0.0-10.0); %Neutrophils 56.9 % (42.0-75.0); Hemoglobin 11.9 g/dL (12.0-16.0); Mean Corpuscular HGB CONC 31.6 g/dL (32.0-36.0); Mean Corpuscular Hemoglobin 30.2 pg (27.0-31.0); Mean Corpuscular Volume 95.5 fl (78.0-98.0); Mean Platelet Volume 5.9 fL (7.4-10.4); Platelet Count 245 10x3/uL (130-400); RBC Distribution Width 13.4 % (11.5-14.5); Red Blood Cell (RBC) Count 3.95 mill/uL (4.20-5.40); White Blood Cell (WBC) Count 6.3 10x3/uL (4.8-10.8)
[2023-02-28 13:41] LABS: ALT (SGPT) 17 U/L (8-55); AST (SGOT) 18 U/L (5-34); Albumin 3.6 g/dL (3.4-4.8); Alkaline Phosphatase 87 U/L (40-110); Anion Gap 14 mmol/L (10-20); BUN (Urea Nitrogen) 21 mg/dL (9.8-20.1); Bilirubin, Total 0.4 mg/dL (0.2-1.2); Calc. Creatinine Clearance 0 mL/min (70-130); Calcium 9.7 mg/dL (7.8-10.44); Carbon Dioxide 24 mmol/L (23-31); Chloride 110 mmol/L (98-107); Estimated GFR 76; Globulin 3.2 g/dL (2.4-3.5); Glucose 100 mg/dL (83-110); Potassium 3.5 mmol/L (3.5-5.1); Protein, Total 6.8 g/dL (5.8-8.1); Sodium 144 mmol/L (136-145)
== END 2023-02-28 11:58 | disposition home or self-care (01) ==
LOC: BURCT 11:57
PROVIDERS: ATTEND Neurological Surgery
DX: Z01.818 Encounter for other preprocedural examination (principal); S82.832S Other fracture of upper and lower end of left fibula, sequela; M54.50 Low back pain, unspecified; I10 Essential (primary) hypertension; M47.812 Spondylosis without myelopathy or radiculopathy, cervical region; M47.813 Spondylosis without myelopathy or radiculopathy, cervicothoracic region; S82.832D Other fracture of upper and lower end of left fibula, subsequent encounter for closed fracture with routine healing
CPT/HCPCS: 36415; 71046; 72125; 80053; 85025; 93005; 93010

== ENCOUNTER 2023-03-07 15:59 | Emergency (ER) | payer MEDICARE, OTHER | END 2023-03-07 17:50 | disposition home or self-care (01) | LOC: BURERS 15:59 | DX: Z04.3 Encounter for examination and observation following other accident (principal); I25.10 Atherosclerotic heart disease of native coronary artery without angina pectoris; I10 Essential (primary) hypertension; E03.9 Hypothyroidism, unspecified; E78.00 Pure hypercholesterolemia, unspecified; W06.XXXA Fall from bed, initial encounter; Z79.899 Other long term (current) drug therapy | CPT/HCPCS: 99284 ==